=== PATIENT | female | born 1940 | race Caucasian/White ===

== ENCOUNTER → 2016-10-27 | Outpatient (REF) ==
[~2016-10-27] MED LIST: AMARYL 2MG T2 MG/TAB PO; AMARYL PO; ASPIRIN 32325 MG/TAB PO; ATIVAN 0.50.5 MG/TAB PO; ATIVAN 1MG T1 MG/TAB PO; BACTRIM DS 8001 TAB PEG; BUPROPION SR150 MG PO; CALCIUM CITRAT200 MG PO; CALCIUM CITRATE1 TA5 PO; CENA K40 MEQ/15 PEG; CENTRUM1 TAB PO; CIPRO 500MG TA500 MG PO; COLACE 100100 MG/CAP PO; DILANTIN 100MG100 MG PO; DILANTIN KAPSEA30 MG PO; DULCOLAX S10 MG/SUPP RC; EFFEXOR XR75 MG/CAP PO; FLAXSEED OIL1000 MG PO; HCTZ 25MG TAB25 MG PEG; HCTZ 25MG25 MG PO; HCTZ12.5TAB PEG; HUMALOG100 U/ML SC; LANTUS100 U/ML SC; LEXAPRO 10MG10 MG PO; LISINOPRIL10 MG PO; LOPRESSOR 225 MG/TAB PO; LYRICA 50MG CAP50 MG PO; MILK OF MA400 MG/51 PEG; MIRALAX PA17 GM/Dose PO; NITROQUICK0.4 MG SL; NORCO 325 MG-51 TAB PO; PERCOCET 325 MG1 TA2 PO; PERI-COLACE 501 TAB PO; PLAVIX 75MG TAB75 MG PO; PREMPRO 0.625/21 TAB PO; PRILOSEC 20MG20 MG PO; SENOKOT S 50 MG1 TAB PO; SENOKOT8.6 MG PO; SEPTRA DS 8001 TAB PO; SUPER B COMPLEX1 TA2 PO; SYNTHROID0.05 MG/TA PO; TOPROL XL 25MG25 MG PO; TYLENOL 500MG500 MG PO; TYLENOL ARTHRI650 M1 PEG; TYLENOL SU325 MG/SUP RC; ULTRAM 50MG TAB50 MG PEG; ULTRAM 50MG TAB50 MG PO; VITAMIN D; VITAMIN E200 I1 PO; VYTORIN PO; ZESTRIL 10MG10 MG PO; [UNRECOGNIZED DRUG - OTHER] PO
== END ==
LOC: ZLAB.WCH 10:44
DX: Z01.89 Encounter for other specified special examinations (principal)

== ENCOUNTER → 2017-01-07 | Outpatient (CLI) | payer MEDICARE, OTHER | LOC: COL.RAD 13:44 | DX: G44.85 Primary stabbing headache (principal); I63.412 Cerebral infarction due to embolism of left middle cerebral artery; G93.89 Other specified disorders of brain; Z86.73 Personal history of transient ischemic attack (TIA), and cerebral infarction without residual deficits ==

== ENCOUNTER → 2017-03-18 | Outpatient (CLI) | payer MEDICARE, OTHER | LOC: COL.VAS 14:52 | DX: I08.0 Rheumatic disorders of both mitral and aortic valves (principal); I10 Essential (primary) hypertension; I42.9 Cardiomyopathy, unspecified ==

== ENCOUNTER → 2017-09-09 | Outpatient (REF) ==
[2017-09-09 19:40] LABS: THYROID STIMULATING HORMONE 2.17 uIU/mL (0.465-4.680)
== END ==
LOC: ZLAB.WCH 18:58
PROVIDERS: Internal Medicine
DX: Z01.89 Encounter for other specified special examinations (principal)

== ENCOUNTER 2019-01-07 12:26 | Emergency (ER) | payer MEDICARE, OTHER ==
[~2019-01-07] VITALS: Ht 172.7 cm; Wt 62.7 kg
[2019-01-07 12:36] VITALS: TEMP 97
[2019-01-07 13:12] LABS: ALBUMIN 3.4 gm/dL (3.5-5.0); BILIRUBIN,TOTAL 1.1 mg/dL (0.0-1.0); CALCIUM 9.1 mg/dL (8.4-10.2); CREATININE, serum 0.53 (0.52-1.25); POTASSIUM 4.3 mmol/L (3.4-5.0); TOTAL PROTEIN 7.4 gm/dL (6.4-8.2)
[2019-01-07 13:14] LABS: BASO % 0.3 % (0.0-2.0); EOS % 0.3 % (0-4.0); GRAN # 10.1 (1.4-6.5); GRAN % 78.3 % (42.2-75.2); HEMATOCRIT 38.5 % (37.0-47.0); HEMOGLOBIN 12.6 g/dl (12.5-16.0); LYMPH # 1.7 (1.2-3.4); LYMPH % 13.4 % (20.0-51.0); MEAN CELL VOLUME 94 fl (80.0-100.0); MEAN CORPUSCULAR HEMOGLOBIN 31 pg (27.0-31.0); MEAN CORPUSCULAR HGB CONC 33 g/dl (33.0-37.0); MEAN PLATELET VOLUME 10.7 fl (7.4-10.4); MONO # 0.9 (0.1-0.6); MONO % 7.2 % (1.7-9.3); PLATELET COUNT 246 K/mm3 (130-400); RED BLOOD COUNT 4.09 M/mm3 (4.10-5.30); REDCELL DISTRIBUTION WIDTH-CV 15.5 % (11.5-14.5)
[2019-01-07 13:15] LABS: INR 1.2 (0.8-3.0); PROTHROMBIN TIME 14.2 SECONDS (9.7-12.8)
[2019-01-07 13:38] LABS: PARTIAL THROMBOPLASTIN TIME 25.6 SECONDS (26.0-37.0)
[2019-01-07 14:15] VITALS: BP 129/57; PULSE 84
== END 2019-01-07 14:30 | disposition short-term general hospital (02) ==
LOC: COL.ER 12:26
PROVIDERS: Emergency Medicine
DX: S81.802A Unspecified open wound, left lower leg, initial encounter (principal); E11.22 Type 2 diabetes mellitus with diabetic chronic kidney disease; I12.9 Hypertensive chronic kidney disease with stage 1 through stage 4 chronic kidney disease, or unspecified chronic kidney disease; N18.9 Chronic kidney disease, unspecified; Z86.73 Personal history of transient ischemic attack (TIA), and cerebral infarction without residual deficits; Z95.1 Presence of aortocoronary bypass graft; Z79.02 Long term (current) use of antithrombotics/antiplatelets; X58.XXXA Exposure to other specified factors, initial encounter
CPT/HCPCS: J1644; J2543